=== PATIENT | male | born 1955 | race Caucasian/White ===

== ENCOUNTER 2022-01-01 07:54 | Outpatient (CLI) | payer OTHER, SELFPAY ==
--- NOTE | 2022-01-01 08:00 | CRLHL7_ITS ---
For Patients: As a result of the Century Cures Act, medical imaging exams and procedure reports are released immediately into your electronic medical record. You may view this report before your referring provider. If you have questions, please contact your health care provider. Indication: SMALL CELL LYMPHOMA Technique: Post contrast CT chest. 89 cc Isovue 370 intravenous contrast. Please note that all CT scans at this facility use dose modulation, iterative reconstruction, and/or weight-based dosing when appropriate to reduce radiation dose to as low as reasonably achievable. Comparison: None Findings: A subtle nodule is present within the left upper lobe measuring 5 millimeters, . Mild dependent atelectasis/scarring. No pleural effusion or infiltrate. Faint ground-glass density within the right upper lobe posteriorly, . No pneumothorax or pulmonary edema. A nodular density is located posterior to the left thyroid lobe measuring 2 cm, 07/24. Thoracic inlet adenopathy noted. Bilateral axillary adenopathy. Moderate residual thymic tissue. Subcutaneous nodule left anterior chest wall measuring 1.3 cm. Mediastinal and bilateral hilar adenopathy with lymph nodes measuring up to 3.8 cm. Upper abdominal adenopathy. Lobular mass in the left upper quadrant measuring 5.4 cm may represent splenosis. Visualized adrenal glands normal. Lymph nodes in the upper abdomen measure up to 3 cm. No fracture. Impression: Extensive adenopathy involving the thoracic inlet, bilateral axilla, bilateral jay jay, mediastinum and upper abdomen. 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 Subtle ground-glass nodules left upper lobe and right upper lobe. Please note that all CT scans at this facility use dose modulation, iterative reconstruction, and/or weight-based dosing when appropriate to reduce radiation dose to as low as reasonably achievable. Dictated by Jacob Billingsley MD @ 01/01/2022 9:05:54 AM (Electronically Signed)
--- NOTE | 2022-01-01 08:00 | CRLHL7_ITS ---
For Patients: As a result of the Century Cures Act, medical imaging exams and procedure reports are released immediately into your electronic medical record. You may view this report before your referring provider. If you have questions, please contact your health care provider. INDICATION: SMALL CELL LYMPHOMA COMPARISON: none TECHNIQUE: A CT volumetric acquisition was performed of the neck during intravenous infusion of 89 cc Isovue 370 nonionic intravenous contrast. Please note that all CT scans at this facility use dose modulation, iterative reconstruction, and/or weight-based dosing when appropriate to reduce radiation dose to as low as reasonably achievable. FINDINGS: Bilateral cervical adenopathy with lymph nodes measuring up to 2.3 cm. The lymph nodes are slightly more prominent on the left, particularly within the lower left neck. Thoracic inlet adenopathy noted as well. There is a 1.9 cm nodule arising from the left thyroid lobe posteriorly. Normal larynx and pharynx. Normal vallecular and piriform sinuses. Degenerative disc disease. Normal salivary glands. No sinus disease. IMPRESSION: Bilateral cervical adenopathy. 1.9 cm left thyroid lobe nodule. Thyroid ultrasound recommended. Please note that all CT scans at this facility use dose modulation, iterative reconstruction, and/or weight-based dosing when appropriate to reduce radiation dose to as low as reasonably achievable. Dictated by Jacob Billingsley MD @ 01/01/2022 9:31:25 AM (Electronically Signed)
== END 2022-01-01 07:55 | disposition home or self-care (01) ==
LOC: CT 07:54
PROVIDERS: PCP Family Medicine; Visit Provider Internal Medicine Hematology & Oncology
DX: C83.00 Small cell B-cell lymphoma, unspecified site (principal); E04.1 Nontoxic single thyroid nodule; R16.1 Splenomegaly, not elsewhere classified; R91.8 Other nonspecific abnormal finding of lung field
CPT/HCPCS: 70491; 71260; Q9967

== ENCOUNTER 2022-05-22 09:30 | Outpatient (RCR) | payer MEDICARE, OTHER, BC, SELFPAY ==
[2021-12-25 12:26] LABS: Basophils Percent Auto 0.1 % (0.0-3.0); Eosinophils Percent Auto 0.7 % (0.0-7.0); Hematocrit 43.1 % (37.0-53.0); Hemoglobin* 13.9 gm/dL (13.5-17.5); Immature Granulocytes Abs Auto 0.07 K/uL (0.00-0.30); Lymphocytes Percent Auto 88.7 % (20-44); Mean Corpuscular HGB Conc 32 gm/dL (32-36); Mean Corpuscular Hemoglobin 30 pg (26-34); Mean Corpuscular Volume 92 fL (80-100); Monocytes Percent Auto 3.3 % (0.0-11.0); Neutrophils Percent Auto 7.1 % (42.0-72.0); Platelet Count* 252 K/uL (140-440); RDW Coefficient of Variation % 13.7 % (11.5-15.5); Red Blood Count 4.69 m/uL (4.30-5.90)
[2021-12-25 12:34] LABS: Chloride* 106 mmol/L (96-114); Sodium* 141 mmol/L (135-149)
[2021-12-25 12:37] LABS: Blood Urea Nitrogen* 17 mg/dL (7-30); Carbon Dioxide* 25 mmol/L (20-32); Creatinine* 1.1 mg/dL (0.5-1.5); Estimated Glomerular Filt Rate 75 ml/min; Glucose* 218 mg/dL (60-115)
[2021-12-25 13:04] LABS: Slide Review Reflex Yes; White Blood Count* 76.22 K/uL (4.50-11.00)
[2021-12-25 13:05] LABS: Slide Review Acceptable Review (Acceptable)
[2021-12-26 14:27] LABS: Beta-2-Microglob Serum/Plasma 4.3 mg/L (<=3.0)
[2021-12-26 15:16] LABS: Immunoglobulin A 169 mg/dL (68-408); Immunoglobulin G 1000 mg/dL (768-1632); Immunoglobulin M 15 mg/dL (35-263)
--- NOTE | 2022-02-11 14:42 | ONC.NURNOTE ---
Pt called wondering if he can get an interpretation of his lab results from Dr. Friend. Left message with pt stating Dr. Friend will review results and reach out to pt by phone when she returns to [facility].
[2022-03-26 10:55] LABS: Basophils Percent Auto 0.1 % (0.0-3.0); Eosinophils Percent Auto 0.4 % (0.0-7.0); Hematocrit 35.7 % (37.0-53.0); Hemoglobin* 11.3 gm/dL (13.5-17.5); Immature Granulocytes Pct Auto 0.1 %; Lymphocytes Percent Auto 89.7 % (20-44); Mean Corpuscular HGB Conc 32 gm/dL (32-36); Mean Corpuscular Hemoglobin 30 pg (26-34); Mean Corpuscular Volume 95 fL (80-100); Monocytes Percent Auto 2.2 % (0.0-11.0); Neutrophils Percent Auto 7.5 % (42.0-72.0); Platelet Count* 410 K/uL (140-440); RDW Coefficient of Variation % 13.2 % (11.5-15.5); Red Blood Count 3.76 m/uL (4.30-5.90)
[2022-03-26 11:00] LABS: Slide Review Reflex Yes; White Blood Count* 128.98 K/uL (4.50-11.00)
[2022-03-26 11:37] LABS: Slide Review Acceptable Review (Acceptable)
[2022-03-31 11:30] VITALS: BP 112/73; PULSE 100; RESP 14; TEMP 36.1; O2SAT 98
--- NOTE | 2022-04-24 15:58 | ONC.NURNOTE ---
Pt cancelled lab appt on 04/23/22 due to spouse testing positive and pt requesting to stay home. Left message with pt to call [facility] to reschedule lab appt.
[2022-05-22 09:28] LABS: Basophils Percent Auto 0.1 % (0.0-3.0); Eosinophils Percent Auto 0.5 % (0.0-7.0); Hematocrit 34.6 % (37.0-53.0); Hemoglobin* 10.6 gm/dL (13.5-17.5); Lymphocytes Percent Auto 93.7 % (20-44); Mean Corpuscular HGB Conc 31 gm/dL (32-36); Mean Corpuscular Hemoglobin 30 pg (26-34); Mean Corpuscular Volume 97 fL (80-100); Monocytes Percent Auto 2.3 % (0.0-11.0); Neutrophils Percent Auto 3.4 % (42.0-72.0); Platelet Count* 229 K/uL (140-440); RDW Coefficient of Variation % 14.2 % (11.5-15.5); Red Blood Count 3.57 m/uL (4.30-5.90)
[2022-05-22 09:55] LABS: Slide Review Reflex No; White Blood Count* 116.57 K/uL (4.50-11.00)
== END 2022-06-23 23:59 | disposition home or self-care (01) ==
LOC: CCIC 09:30
PROVIDERS: PCP Family Medicine; Referring Provider Family Medicine; Visit Provider Internal Medicine Hematology & Oncology
DX: C83.00 Small cell B-cell lymphoma, unspecified site (principal)
CPT/HCPCS: 36415; 80048; 82232; 82784; 85025; 96372; 99202; 99204; 99205; 99212; 99213; 99214

== ENCOUNTER 2022-06-24 11:58 | Outpatient (CLI) | payer MEDICARE, BC, SELFPAY ==
--- NOTE | 2022-06-24 13:00 | CRLHL7_ITS ---
For Patients: As a result of the 21st Century Cures Act, medical imaging exams and procedure reports are released immediately into your electronic medical record. You may view this report before your referring provider. If you have questions, please contact your health care provider. INDICATION: Chronic lymphocytic leukemia. COMPARISON: None TECHNIQUE: CT examination of the chest, abdomen and pelvis was performed without intravenous contrast. Thin section axial images were obtained from the thoracic inlet through the pubic symphysis. Oral contrast was not administered. Sagittal and coronal reformatted imaging was performed Please note that all CT scans at this facility use dose modulation, iterative reconstruction, and/or weight-based dosing when appropriate to reduce radiation dose to as low as reasonably achievable. FINDINGS: CHEST: The heart size normal. There is significant mediastinal lymphadenopathy diffusely. This is present on the prior study and is similar to the prior exam. There is also bilateral axillary lymphadenopathy which is similar to the prior study. A nodule is noted in the left breast which is unchanged probably an enlarged lymph node. No pericardial effusion. The lungs show no focal consolidation, infiltrate or mass. No significant nodule. Trace basilar atelectasis. No pleural effusion or pneumothorax. ABDOMEN AND PELVIS: LIVER/BILIARY SYSTEM:The liver is normal in size and configuration given the lack of intravenous contrast. There is no visible focal mass and there is no intra- or extra hepatic biliary ductal dilatation.The gall bladder appears normal. ADRENALS: Normal non-contrast appearance KIDNEYS, URETERS and BLADDER:There is an exophytic left upper pole renal lesion. This measures 34 Hounsfield units and measures about 5.2 centimeters. This is non cystic but is similar to January 01, 2022. This is probably a complex cyst but follow-up evaluation is recommended such as ultrasound. There is bilateral hydronephrosis and hydroureter, left much greater than right. There is marked cortical thinning on the left but no significant cortical thinning on the right. There is a stone in the distal right ureter measuring 5.6 millimeters. This about 2 centimeters from the UVJ. There is a 12 millimeter stone in the distal left ureter at the UVJ. A small stone is noted in the bladder. The bladder is distended and there is wall thickening and trabeculation in keeping with chronic bladder outlet obstruction. The prostate is enlarged The hydronephrosis and hydroureter is probably due to a combination of stone disease and bladder outlet obstruction. SPLEEN:The spleen appears to be absent. There are multiple nodules in the left upper quadrant which are probably regenerative splenules and it may be unusually large due to CLL. This appearance is unchanged. PANCREAS: Normal non-contrast appearance. RETROPERITONEUM and MESENTERY: There is lymphadenopathy identified. This is mesenteric, retroperitoneal and pelvic and is overall moderate. This is likely associated with the patient`s CLL. GASTROINTESTINAL SYSTEM: There is no evidence of diverticulitis, colitis, mechanical obstruction, or appendicitis. The small bowel as visualized appears normal.Fecal retention and diverticulosis PELVIS: Enlarged prostate. Abnormal bladder. And lymphadenopathy. These factors were discussed above OSSEOUS STRUCTURES and ABDOMINAL WALL: No destructive process of bone.No visible herniation OTHER: No free fluid or free air. IMPRESSION: 1. CHEST: Mediastinal and bilateral axillary lymphadenopathy similar to the prior study. Left chest wall nodule probably an enlarged lymph node likewise unchanged. Lungs and pleural spaces show no significant finding CLL. This is within the abdomen in the pelvis. The spleen appears to be absent. There are multiple prominent regenerative splenules. There are large size may be related to the patient`s underlying CLL. 3. KIDNEYS: Bilateral obstructive uropathy with severe cortical thinning on the left. This appears to be due to a combination of stone disease and chronic bladder outlet obstruction on the basis of an enlarged prostate. Please review the description above regarding the urinary system 4. OSSEOUS STRUCTURES: No destructive process of bone Please note that all CT scans at this facility use dose modulation, iterative reconstruction, and/or weight-based dosing when appropriate to reduce radiation dose to as low as reasonably achievable. Dictated by Wallace Patrick MD @ 06/25/2022 8:43:55 AM (Electronically Signed)
== END 2022-06-24 11:59 | disposition home or self-care (01) ==
LOC: CT 12:00
PROVIDERS: PCP Family Medicine; Visit Provider Physician Assistant
DX: C91.10 Chronic lymphocytic leukemia of B-cell type not having achieved remission (principal); R59.0 Localized enlarged lymph nodes; N40.0 Benign prostatic hyperplasia without lower urinary tract symptoms
CPT/HCPCS: 71250; 74176

== ENCOUNTER 2022-09-22 13:45 | Outpatient (RCR) | payer MEDICARE, BC, SELFPAY ==
[2022-06-24 12:37] LABS: Basophils Percent Auto 0.1 % (0.0-3.0); Eosinophils Percent Auto 0.6 % (0.0-7.0); Hematocrit 34.6 % (37.0-53.0); Hemoglobin* 10.7 gm/dL (13.5-17.5); Immature Granulocytes Pct Auto 0.1 %; Lymphocytes Percent Auto 91.5 % (20-44); Mean Corpuscular HGB Conc 31 gm/dL (32-36); Mean Corpuscular Hemoglobin 31 pg (26-34); Mean Corpuscular Volume 99 fL (80-100); Monocytes Percent Auto 3.6 % (0.0-11.0); Neutrophils Percent Auto 4.1 % (42.0-72.0); Platelet Count* 216 K/uL (140-440); RDW Coefficient of Variation % 14.8 % (11.5-15.5); Red Blood Count 3.51 m/uL (4.30-5.90)
[2022-06-24 12:40] LABS: Estimated Glomerular Filt Rate 36 ml/min
[2022-06-24 13:21] LABS: White Blood Count* 103.38 K/uL (4.50-11.00)
[2022-06-24 13:22] LABS: Slide Review Acceptable Review (Acceptable); Slide Review Reflex Yes
[2022-09-22 13:49] LABS: Basophils Percent Auto 0.1 % (0.0-3.0); Eosinophils Percent Auto 0.5 % (0.0-7.0); Hematocrit 36.7 % (37.0-53.0); Hemoglobin* 11.3 gm/dL (13.5-17.5); Immature Granulocytes Pct Auto 0.1 %; Lymphocytes Percent Auto 94.3 % (20-44); Mean Corpuscular HGB Conc 31 gm/dL (32-36); Mean Corpuscular Hemoglobin 30 pg (26-34); Mean Corpuscular Volume 96 fL (80-100); Monocytes Percent Auto 1.5 % (0.0-11.0); Neutrophils Percent Auto 3.5 % (42.0-72.0); Platelet Count* 307 K/uL (140-440); RDW Coefficient of Variation % 13.7 % (11.5-15.5); Red Blood Count 3.83 m/uL (4.30-5.90)
[2022-09-22 14:35] LABS: Slide Review Reflex Yes; White Blood Count* 150.34 K/uL (4.50-11.00)
[2022-09-22 14:36] LABS: Slide Review Acceptable Review (Acceptable)
[2022-09-22 17:22] LABS: Chloride* 105 mmol/L (96-114); Potassium* 4.3 mmol/L (3.6-5.1); Sodium* 141 mmol/L (135-149)
[2022-09-22 17:24] LABS: Bilirubin Total* 0.9 mg/dL (0.1-1.5); Creatinine* 1.6 mg/dL (0.5-1.5); Estimated Glomerular Filt Rate 48 ml/min
[2022-09-22 17:25] LABS: Alanine Aminotransferase* 25 U/L (4-50); Alkaline Phosphatase* 95 U/L (40-150); Aspartate Amino Transferase* 30 U/L (12-35); Blood Urea Nitrogen* 18 mg/dL (7-30); Calcium* 8.8 mg/dL (8.4-10.6); Carbon Dioxide* 28 mmol/L (20-32); Glucose* 209 mg/dL (60-115); Lactate Dehydrogenase* 148 U/L (120-246); Total Protein* 7.1 g/dL (6.0-8.3)
== END 2022-12-21 23:59 | disposition home or self-care (01) ==
LOC: CCIC 13:45
PROVIDERS: Internal Medicine Hematology & Oncology; Physician Assistant; PCP Family Medicine; Referring Provider Family Medicine; Visit Provider Internal Medicine Hematology & Oncology
DX: C91.10 Chronic lymphocytic leukemia of B-cell type not having achieved remission (principal); D64.9 Anemia, unspecified
CPT/HCPCS: 36415; 80053; 82565; 83615; 85025; 99212; 99214

== ENCOUNTER 2023-02-17 10:34 | Outpatient (CLI) | payer MEDICARE, BC, SELFPAY ==
--- NOTE | 2023-02-17 11:00 | CRLHL7_ITS ---
For Patients: As a result of the 21st Century Cures Act, medical imaging exams and procedure reports are released immediately into your electronic medical record. You may view this report before your referring provider. If you have questions, please contact your health care provider. Indication: LYMPHOPLASMACYSTIC LYMPHOMA- FOLLOW UP Technique: Noncontrast CT chest, abdomen and pelvis. Please note that all CT scans at this facility use dose modulation, iterative reconstruction, and/or weight-based dosing when appropriate to reduce radiation dose to as low as reasonably achievable. Comparison: 06/24/2022 Findings: In the chest, there is a similar appearance of the thyroid gland with several small nodules. Similar morphology, size and number innumerable enlarged lymph nodes throughout the thorax, including the thoracic inlet, upper mediastinum, bilateral axilla, middle mediastinum and in the epicardial fat. Similar lymph node within the left anterior chest wall. No pleural or pericardial effusion. The jay jay appear similar on this noncontrast enhanced exam. Similar lymph nodes at the GE junction. Lungs are clear. No fracture. In the abdomen, hepatomegaly noted measuring 22.2 cm. Previously, the liver measured 20.5 cm. Multiple splenules in the left upper quadrant again noted. Stones within the left renal collecting system are similar. Decreased left hydroureteronephrosis. Right renal cysts. Resolution of previously noted right hydroureteronephrosis. Gallbladder normal. Pancreas is similar. No adrenal lesion. Extensive adenopathy in the retroperitoneum and mesenteric fat is similar. Mild atherosclerotic changes. No aneurysm. No free fluid. No bowel obstruction. No hiatal hernia. Stable peripherally calcified structure in the left upper quadrant. In the pelvis, diffuse bladder wall thickening with trabeculation again noted with decreased distention of the bladder since the prior exam. No mechanical bowel obstruction. Sigmoid diverticulosis. No diverticulitis. No ascites or abscess. Adenopathy in the pelvic sidewalls and inguinal regions remains similar. No fracture. Degenerative changes at L5-S1. Postop changes regarding the prostate. Impression: Similar bulky adenopathy in the chest, abdomen and pelvis. Hepatomegaly with increased hepatic size since the prior study. Postop changes to the inferior bladder/prostate with decreased distention of the bladder. Persistent bladder wall thickening with trabeculation. Decreased hydroureteronephrosis bilaterally with mild residual distention of the left renal collecting system. Persistent left renal stones in the inferior left renal collecting system. Colonic diverticulosis without diverticulitis or bowel obstruction. Please note that all CT scans at this facility use dose modulation, iterative reconstruction, and/or weight-based dosing when appropriate to reduce radiation dose to as low as reasonably achievable. Dictated by Jacob Billingsley MD @ 02/19/2023 6:48:21 AM (Electronically Signed)
== END 2023-02-17 10:35 | disposition home or self-care (01) ==
PROVIDERS: PCP Family Medicine; Visit Provider Internal Medicine Hematology & Oncology
DX: C83.00 Small cell B-cell lymphoma, unspecified site (principal); R16.0 Hepatomegaly, not elsewhere classified
CPT/HCPCS: 71250; 74176

== ENCOUNTER 2023-09-06 13:00 | Outpatient (RCR) | payer MEDICARE, BC, SELFPAY ==
--- NOTE | 2023-03-01 15:26 | ONC.NURNOTE ---
Recieved a critical lab value from [facility]. WBC: 190.2. This lab was reported to Dr. Viera. Per Dr. Viera, this patient transferred care to [place] for which she see's this patient virtually. Dr. Viera will follow up with patient regarding this critical lab value.
--- NOTE | 2023-03-09 13:05 | ONC.NURNOTE ---
New start Calquence RX sent to [id number] fax [phone] Herminio was contacted and will be coming in on Wednesday for teaching EKG orders sent to Dr medrano at [facility]- Herminio will try to get done before leaving for [place] for 3 weeks PA/copay info pending we do not have Herminio's update insurance and he will email to this promotion writer
--- NOTE | 2023-03-16 13:29 | ONC.NURNOTE ---
Patient and here for teaching on new start Calquence reviewed handout, possible side effects, after hours management, reviewed content of the new patient education binder discussed fever management, self care at home, safe handling and disposal discussed process for obtaining the medication- possible copays and options for copay assist and free drug options thru the door to door lead generation patient will be starting Calquence when he returns from 3 week trip to [place] and has a Dr Viera appt after Thanksgiving questions addressed consents/CHIQUI reviewed and signed
--- NOTE | 2023-03-16 13:34 | ONC.NURNOTE ---
Addendum entered by Vandana Baez RN 03/17/23 13:47: PA approved 12/15/22-03/15/24 Case # [id number] Copay per [facility] is $3210.23/month Herminio contacted with instructions to contact [id number] to request enrollment in copay program he will need his 1040 gross income and ss # patient states understanding Original Note: New RX sent to [id number] with supportive information PA completed and approved via Covermymeds patient thinks he will have a copay around $3000/month
--- NOTE | 2023-03-24 09:26 | ONC.NURNOTE ---
Copay enrollment for Calquence Drug Name:[employer] / National Sales Consultant: LLS Effective Date (mmdd/yyyy): 12/18/2022 Expiration Date (yyyy):03/17/2024 Award Amount: $10,000 Group#: [id number] Financial Assistance obtained by [id number]? (Y/N): YES
--- NOTE | 2023-03-30 09:55 | ONC.NURNOTE ---
Patient expressed interest in clinical trials options- this was mentioned to Dr Viera- patient has an appt next week with Dr Viera
[2023-04-12 13:39] LABS: Basophils Percent Auto 0.1 % (0.0-3.0); Eosinophils Percent Auto 0.2 % (0.0-7.0); Hematocrit 42.9 % (37.0-53.0); Hemoglobin* 12.8 gm/dL (13.5-17.5); Immature Granulocytes Pct Auto 0.1 %; Lymphocytes Percent Auto 94.3 % (20-44); Mean Corpuscular HGB Conc 30 gm/dL (32-36); Mean Corpuscular Hemoglobin 30 pg (26-34); Mean Corpuscular Volume 99 fL (80-100); Neutrophils Percent Auto 3.3 % (42.0-72.0); Platelet Count* 228 K/uL (140-440); RDW Coefficient of Variation % 14.4 % (11.5-15.5); Red Blood Count 4.32 m/uL (4.30-5.90)
[2023-04-12 13:49] LABS: Albumin* 4.6 g/dL (3.3-5.0); Chloride* 103 mmol/L (96-114)
[2023-04-12 13:50] LABS: Potassium* 4.4 mmol/L (3.6-5.1); Sodium* 140 mmol/L (135-149)
[2023-04-12 13:52] LABS: Alanine Aminotransferase* 42 U/L (4-50); Alkaline Phosphatase* 75 U/L (40-150); Anion Gap 9 mEq/L (7-15); Aspartate Amino Transferase* 32 U/L (12-35); Bilirubin Total* 2.3 mg/dL (0.1-1.5); Blood Urea Nitrogen* 29 mg/dL (7-30); Carbon Dioxide* 28 mmol/L (20-32); Creatinine* 1.7 mg/dL (0.5-1.5); Estimated Glomerular Filt Rate 44 ml/min; Glucose* 261 mg/dL (60-115); Lactate Dehydrogenase* 155 U/L (120-246); Total Protein* 7.4 g/dL (6.0-8.3)
[2023-04-12 13:53] LABS: Calcium* 9.4 mg/dL (8.4-10.6)
[2023-04-12 14:05] LABS: Slide Review Reflex Yes; White Blood Count* 212.93 K/uL (4.50-11.00)
[2023-04-12 14:15] LABS: Slide Review Acceptable Review (Acceptable)
[2023-04-12 15:09] LABS: Uric Acid* 6.7 mg/dL (2.2-8.4)
--- NOTE | 2023-04-12 15:28 | ONC.NURNOTE ---
Dose adjustment- verbal order to [facility] start Calquence at 100 mg/day instead of 100 mg BID disp #30 with 1 refill as was written
--- NOTE | 2023-04-13 12:27 | ONC.NURNOTE ---
Patient called office to let us know that he received his calquence and that he plans to start the medication tomorrow at 0800.
--- NOTE | 2023-04-16 14:57 | ONC.NURNOTE ---
Patient called in to set up follow up appts for 2 week lab and 4wk lab and MD Reports no side effects of calquence denies questions about administration will follow up again next week consumer loan underwriter later called back and left message to confirm that he started his allopurinol- message left on VM
--- NOTE | 2023-04-20 15:33 | ONC.NURNOTE ---
medication tolerance follow up Herminio reports no rash, no GI symptoms, no arthralgias or myalgias has noted fatigue discussed importance of staying very well hydrated and confirmed that he is taking the allopurinol discussed calling with any changes or concerns in the next week- appt for lab planned 04/29/23
[2023-04-29 11:09] LABS: Eosinophils Percent Auto 0.1 % (0.0-7.0); Hematocrit 44.1 % (37.0-53.0); Hemoglobin* 11.5 gm/dL (13.5-17.5); Immature Granulocytes Pct Auto 0.1 %; Lymphocytes Percent Auto 97.4 % (20-44); Mean Corpuscular HGB Conc 26 gm/dL (32-36); Mean Corpuscular Hemoglobin 27 pg (26-34); Mean Corpuscular Volume 105 fL (80-100); Monocytes Percent Auto 0.6 % (0.0-11.0); Neutrophils Percent Auto 1.8 % (42.0-72.0); Platelet Count* 257 K/uL (140-440); Red Blood Count 4.22 m/uL (4.30-5.90)
[2023-04-29 11:23] LABS: Albumin* 4.5 g/dL (3.3-5.0); Chloride* 103 mmol/L (96-114); Potassium* 4.9 mmol/L (3.6-5.1); Sodium* 138 mmol/L (135-149)
[2023-04-29 11:25] LABS: Creatinine* 1.6 mg/dL (0.5-1.5); Estimated Glomerular Filt Rate 47 ml/min; Total Protein* 7.7 g/dL (6.0-8.3)
[2023-04-29 11:26] LABS: Alanine Aminotransferase* 35 U/L (4-50); Alkaline Phosphatase* 100 U/L (40-150); Aspartate Amino Transferase* 32 U/L (12-35); Blood Urea Nitrogen* 35 mg/dL (7-30); Calcium* 9.5 mg/dL (8.4-10.6); Glucose* 243 mg/dL (60-115)
[2023-04-29 11:30] LABS: Slide Review Acceptable Review (Acceptable); Slide Review Reflex Yes
[2023-04-29 11:42] LABS: Anion Gap 9 mEq/L (7-15); Carbon Dioxide* 26 mmol/L (20-32)
--- NOTE | 2023-04-30 10:59 | ONC.NURNOTE ---
Leukemia and Lymphoma enrollment through 03/17/24 ID: [id number] [facility] [id number] [facility] [id number] [facility] [id number]
[2023-05-03 08:15] LABS: Eosinophils Percent Auto 0.1 % (0.0-7.0); Hematocrit 42.9 % (37.0-53.0); Hemoglobin* 10.7 gm/dL (13.5-17.5); Immature Granulocytes Pct Auto 0.1 %; Lymphocytes Percent Auto 97.4 % (20-44); Mean Corpuscular HGB Conc 25 gm/dL (32-36); Mean Corpuscular Hemoglobin 26 pg (26-34); Mean Corpuscular Volume 105 fL (80-100); Monocytes Percent Auto 1.3 % (0.0-11.0); Neutrophils Percent Auto 1.1 % (42.0-72.0); Platelet Count* 240 K/uL (140-440); RDW Coefficient of Variation % 19.1 % (11.5-15.5); Red Blood Count 4.07 m/uL (4.30-5.90)
[2023-05-03 08:31] LABS: Albumin* 4.4 g/dL (3.3-5.0); Chloride* 103 mmol/L (96-114)
[2023-05-03 08:32] LABS: Potassium* 4.6 mmol/L (3.6-5.1); Sodium* 138 mmol/L (135-149)
[2023-05-03 08:33] LABS: Slide Review Reflex Yes; White Blood Count* 367.44 K/uL (4.50-11.00)
[2023-05-03 08:34] LABS: Alkaline Phosphatase* 90 U/L (40-150); Anion Gap 8 mEq/L (7-15); Aspartate Amino Transferase* 37 U/L (12-35); Blood Urea Nitrogen* 28 mg/dL (7-30); Carbon Dioxide* 27 mmol/L (20-32); Creatinine* 1.5 mg/dL (0.5-1.5); Estimated Glomerular Filt Rate 51 ml/min; Lactate Dehydrogenase* 146 U/L (120-246); Slide Review Acceptable Review (Acceptable); Total Protein* 7.4 g/dL (6.0-8.3)
[2023-05-03 08:35] LABS: Alanine Aminotransferase* 41 U/L (4-50); Calcium* 9.2 mg/dL (8.4-10.6); Glucose* 218 mg/dL (60-115)
[2023-05-13 10:42] LABS: Eosinophils Percent Auto 0.1 % (0.0-7.0); Immature Granulocytes Pct Auto 0.1 %; Lymphocytes Percent Auto 97.8 % (20-44); Mean Corpuscular HGB Conc 25 gm/dL (32-36); Mean Corpuscular Hemoglobin 26 pg (26-34); Mean Corpuscular Volume 106 fL (80-100); Monocytes Percent Auto 0.6 % (0.0-11.0); Neutrophils Percent Auto 1.4 % (42.0-72.0); Platelet Count* 199 K/uL (140-440); Red Blood Count 4.17 m/uL (4.30-5.90)
[2023-05-13 11:17] LABS: Slide Review Reflex Yes
[2023-05-13 11:18] LABS: Slide Review Acceptable Review (Acceptable)
[2023-05-13 11:20] LABS: Albumin* 4.4 g/dL (3.3-5.0); Chloride* 101 mmol/L (96-114); Potassium* 4.4 mmol/L (3.6-5.1); Sodium* 138 mmol/L (135-149)
[2023-05-13 11:22] LABS: Bilirubin Total* 1.2 mg/dL (0.1-1.5); Creatinine* 1.6 mg/dL (0.5-1.5); Estimated Glomerular Filt Rate 47 ml/min
[2023-05-13 11:23] LABS: Alanine Aminotransferase* 48 U/L (4-50); Alkaline Phosphatase* 92 U/L (40-150); Anion Gap 12 mEq/L (7-15); Aspartate Amino Transferase* 38 U/L (12-35); Blood Urea Nitrogen* 28 mg/dL (7-30); Carbon Dioxide* 25 mmol/L (20-32); Glucose* 257 mg/dL (60-115); Lactate Dehydrogenase* 150 U/L (120-246); Total Protein* 7.4 g/dL (6.0-8.3)
--- NOTE | 2023-05-13 13:13 | ONC.NURNOTE ---
WBC called to Herminio- results consistent with the upward trend since starting Calquence- has an appt with Dr Viera next week continues on Calquence QOD until sees Dr Viera
[2023-05-25 08:40] LABS: Eosinophils Percent Auto 0.1 % (0.0-7.0); Hematocrit 42.7 % (37.0-53.0); Hemoglobin* 10.8 gm/dL (13.5-17.5); Immature Granulocytes Pct Auto 0.1 %; Mean Corpuscular HGB Conc 25 gm/dL (32-36); Mean Corpuscular Hemoglobin 27 pg (26-34); Mean Corpuscular Volume 106 fL (80-100); Monocytes Percent Auto 0.6 % (0.0-11.0); Neutrophils Percent Auto 1.2 % (42.0-72.0); Platelet Count* 229 K/uL (140-440); Red Blood Count 4.03 m/uL (4.30-5.90)
[2023-05-25 08:47] LABS: Slide Review Reflex Yes
[2023-05-25 08:53] LABS: Albumin* 4.1 g/dL (3.3-5.0); Chloride* 107 mmol/L (96-114); Potassium* 4.4 mmol/L (3.6-5.1); Sodium* 140 mmol/L (135-149)
[2023-05-25 08:55] LABS: Creatinine* 1.5 mg/dL (0.5-1.5)
[2023-05-25 08:56] LABS: Alanine Aminotransferase* 43 U/L (4-50); Alkaline Phosphatase* 88 U/L (40-150); Anion Gap 8 mEq/L (7-15); Aspartate Amino Transferase* 34 U/L (12-35); Bilirubin Total* 1.1 mg/dL (0.1-1.5); Blood Urea Nitrogen* 29 mg/dL (7-30); Calcium* 9.1 mg/dL (8.4-10.6); Carbon Dioxide* 25 mmol/L (20-32); Estimated Glomerular Filt Rate 51 ml/min; Glucose* 248 mg/dL (60-115); Lactate Dehydrogenase* 133 U/L (120-246); Total Protein* 7.1 g/dL (6.0-8.3)
[2023-05-25 09:00] LABS: Slide Review Acceptable Review (Acceptable)
[2023-06-07 08:12] LABS: Eosinophils Percent Auto 0.1 % (0.0-7.0); Hematocrit 43.9 % (37.0-53.0); Hemoglobin* 10.6 gm/dL (13.5-17.5); Immature Granulocytes Pct Auto 0.1 %; Lymphocytes Percent Auto 97.8 % (20-44); Mean Corpuscular HGB Conc 24 gm/dL (32-36); Mean Corpuscular Hemoglobin 26 pg (26-34); Mean Corpuscular Volume 107 fL (80-100); Monocytes Percent Auto 0.4 % (0.0-11.0); Neutrophils Percent Auto 1.6 % (42.0-72.0); Platelet Count* 261 K/uL (140-440); Red Blood Count 4.11 m/uL (4.30-5.90)
[2023-06-07 08:16] LABS: Albumin* 4.2 g/dL (3.3-5.0); Chloride* 106 mmol/L (96-114); Sodium* 139 mmol/L (135-149)
[2023-06-07 08:17] LABS: Potassium* 4.9 mmol/L (3.6-5.1)
[2023-06-07 08:19] LABS: Alkaline Phosphatase* 98 U/L (40-150); Anion Gap 9 mEq/L (7-15); Aspartate Amino Transferase* 26 U/L (12-35); Blood Urea Nitrogen* 30 mg/dL (7-30); Carbon Dioxide* 24 mmol/L (20-32); Creatinine* 1.4 mg/dL (0.5-1.5); Estimated Glomerular Filt Rate 55 ml/min; Total Protein* 7.3 g/dL (6.0-8.3)
[2023-06-07 08:20] LABS: Alanine Aminotransferase* 34 U/L (4-50); Calcium* 9.2 mg/dL (8.4-10.6); Glucose* 244 mg/dL (60-115)
--- NOTE | 2023-06-07 08:41 | ONC.NURNOTE ---
Critical lab: Total Wbc 413.99. Lab work obtained prior to follow up appointment with Dr. Susan Viera for CLL tomorrow 06/08/23. Provider aware of wbc trend and has been adjusting calquence.
[2023-06-07 08:44] LABS: Slide Review Acceptable Review (Acceptable); Slide Review Reflex Yes
[2023-07-02 07:57] LABS: Eosinophils Percent Auto 0.2 % (0.0-7.0); Hematocrit 42.1 % (37.0-53.0); Hemoglobin* 10.8 gm/dL (13.5-17.5); Immature Granulocytes Pct Auto 0.1 %; Lymphocytes Percent Auto 96.9 % (20-44); Mean Corpuscular HGB Conc 26 gm/dL (32-36); Mean Corpuscular Hemoglobin 27 pg (26-34); Mean Corpuscular Volume 106 fL (80-100); Monocytes Percent Auto 1.4 % (0.0-11.0); Neutrophils Percent Auto 1.4 % (42.0-72.0); Platelet Count* 247 K/uL (140-440); Red Blood Count 3.97 m/uL (4.30-5.90)
[2023-07-02 08:19] LABS: Slide Review Reflex Yes; White Blood Count* 363.38 K/uL (4.50-11.00)
[2023-07-02 08:21] LABS: Slide Review Acceptable Review (Acceptable)
[2023-07-02 08:30] LABS: Chloride* 108 mmol/L (96-114)
[2023-07-02 08:31] LABS: Potassium* 4.4 mmol/L (3.6-5.1); Sodium* 140 mmol/L (135-149)
[2023-07-02 08:33] LABS: Alkaline Phosphatase* 94 U/L (40-150); Anion Gap 8 mEq/L (7-15); Aspartate Amino Transferase* 36 U/L (12-35); Bilirubin Total* 0.7 mg/dL (0.1-1.5); Blood Urea Nitrogen* 22 mg/dL (7-30); Carbon Dioxide* 24 mmol/L (20-32); Creatinine* 1.4 mg/dL (0.5-1.5); Estimated Glomerular Filt Rate 55 ml/min
[2023-07-02 08:34] LABS: Alanine Aminotransferase* 37 U/L (4-50); Calcium* 9.2 mg/dL (8.4-10.6); Glucose* 201 mg/dL (60-115); Lactate Dehydrogenase* 125 U/L (120-246)
--- NOTE | 2023-07-02 13:18 | ONC.NURNOTE ---
White count called to Herminio- decreased from last draw Appt on Wednesday with Dr Viera
[2023-07-30 07:59] LABS: Eosinophils Percent Auto 0.1 % (0.0-7.0); Hematocrit 43.8 % (37.0-53.0); Immature Granulocytes Pct Auto 0.1 %; Lymphocytes Percent Auto 97.2 % (20-44); Mean Corpuscular HGB Conc 27 gm/dL (32-36); Mean Corpuscular Hemoglobin 28 pg (26-34); Mean Corpuscular Volume 102 fL (80-100); Monocytes Percent Auto 1.1 % (0.0-11.0); Neutrophils Percent Auto 1.5 % (42.0-72.0); Platelet Count* 216 K/uL (140-440); Red Blood Count 4.31 m/uL (4.30-5.90)
[2023-07-30 08:29] LABS: Slide Review Reflex Yes; White Blood Count* 286.25 K/uL (4.50-11.00)
[2023-07-30 08:31] LABS: Slide Review Acceptable Review (Acceptable)
[2023-09-03 07:56] LABS: Eosinophils Percent Auto 0.2 % (0.0-7.0); Hematocrit 41.9 % (37.0-53.0); Hemoglobin* 12.3 gm/dL (13.5-17.5); Immature Granulocytes Pct Auto 0.1 %; Lymphocytes Percent Auto 97.2 % (20-44); Mean Corpuscular HGB Conc 29 gm/dL (32-36); Mean Corpuscular Hemoglobin 29 pg (26-34); Mean Corpuscular Volume 100 fL (80-100); Monocytes Percent Auto 0.3 % (0.0-11.0); Neutrophils Percent Auto 2.2 % (42.0-72.0); Platelet Count* 236 K/uL (140-440); RDW Coefficient of Variation % 13.9 % (11.5-15.5); Red Blood Count 4.21 m/uL (4.30-5.90)
[2023-09-03 08:10] LABS: Albumin* 4.1 g/dL (3.3-5.0)
[2023-09-03 08:11] LABS: Chloride* 109 mmol/L (96-114); Potassium* 4.5 mmol/L (3.6-5.1); Sodium* 139 mmol/L (135-149)
[2023-09-03 08:13] LABS: Alkaline Phosphatase* 79 U/L (40-150); Anion Gap 5 mEq/L (7-15); Aspartate Amino Transferase* 25 U/L (12-35); Bilirubin Total* 0.9 mg/dL (0.1-1.5); Carbon Dioxide* 25 mmol/L (20-32); Creatinine* 1.4 mg/dL (0.5-1.5); Estimated Glomerular Filt Rate 55 ml/min; Total Protein* 7.3 g/dL (6.0-8.3)
[2023-09-03 08:14] LABS: Alanine Aminotransferase* 25 U/L (4-50); Blood Urea Nitrogen* 29 mg/dL (7-30); Glucose* 225 mg/dL (60-115); Lactate Dehydrogenase* 142 U/L (120-246)
[2023-09-03 08:48] LABS: Slide Review Reflex Yes
[2023-09-03 08:49] LABS: Slide Review Acceptable Review (Acceptable)
== END 2023-09-11 23:59 | disposition home or self-care (01) ==
LOC: CCIC 13:00
PROVIDERS: Clinical Nurse Specialist; PCP Family Medicine; Referring Provider Family Medicine; Visit Provider Internal Medicine Hematology & Oncology
DX: C91.10 Chronic lymphocytic leukemia of B-cell type not having achieved remission (principal)
CPT/HCPCS: 36415; 80053; 83615; 84550; 85025; 99211; 99212; 99213; 99214; 99215; G0463

== ENCOUNTER 2024-03-27 13:30 | Outpatient (RCR) | payer MEDICARE, BC, SELFPAY ==
--- NOTE | 2023-11-10 13:01 | ONC.NURNOTE ---
Addendum entered by Vandana Baez RN 11/11/23 14:53: Herminio phoned in with an update The pharmacy does not have the paxlovid in stock yet- so Herminio has continued with his calquence Herminio reports feeling well today- symptoms that started on Wednesday have improved he had a fever and chilss Wednesday pm and sinus congestion on Wednesday- today only lingering symptom is fatigue Herminio reports that he returned to baseline status this past few weeks- and feels the calquence is working well to control his CLL- he would prefer to not take the paxlovid to avoid interruption of calquence this office will call Herminio back either or Wednesday with recommendations after speaking with Dr Friend this afternoon- Original Note: Anjana Fernandez PA-C phoned this office to report that patient is COVID positive she is concerned about potential interactions between calquence and Paxlovid property underwriter spoke with Kayla Doan APRN?YOUTH CAREER SPECIALIST following recommendation discussed with Anjana -hold meaghanqueimelda -Anjana to prescribe paxlovid -discuss with Dr Friend tomorrow about when is appropriate to restart calquence -will call patient on or Wednesday with further instructions -Kayla also advised that Anjana may want to check with [facility] or [facility] for further guidance
--- NOTE | 2023-11-16 14:49 | ONC.NURNOTE ---
LM on voice mail- follow up call re last weeks BAMBI dx
[2023-11-25 08:15] LABS: Eosinophils Percent Auto 0.3 % (0.0-7.0); Hematocrit 42.3 % (37.0-53.0); Hemoglobin* 13.1 gm/dL (13.5-17.5); Lymphocytes Percent Auto 95.6 % (20-44); Mean Corpuscular HGB Conc 31 gm/dL (32-36); Mean Corpuscular Hemoglobin 29 pg (26-34); Mean Corpuscular Volume 92 fL (80-100); Monocytes Percent Auto 0.7 % (0.0-11.0); Neutrophils Percent Auto 2.4 % (42.0-72.0); Platelet Count* 306 K/uL (140-440); RDW Coefficient of Variation % 12.9 % (11.5-15.5); Red Blood Count 4.59 m/uL (4.30-5.90)
[2023-11-25 08:21] LABS: Chloride* 106 mmol/L (96-114)
[2023-11-25 08:22] LABS: Albumin* 4.2 g/dL (3.3-5.0); Potassium* 4.6 mmol/L (3.6-5.1); Sodium* 138 mmol/L (135-149)
[2023-11-25 08:24] LABS: Creatinine* 1.4 mg/dL (0.5-1.5); Estimated Glomerular Filt Rate 55 ml/min
[2023-11-25 08:25] LABS: Alanine Aminotransferase* 13 U/L (4-50); Alkaline Phosphatase* 83 U/L (40-150); Anion Gap 9 mEq/L (7-15); Aspartate Amino Transferase* 18 U/L (12-35); Bilirubin Total* 0.7 mg/dL (0.1-1.5); Blood Urea Nitrogen* 28 mg/dL (7-30); Calcium* 9.3 mg/dL (8.4-10.6); Carbon Dioxide* 23 mmol/L (20-32); Glucose* 326 mg/dL (60-115); Lactate Dehydrogenase* 204 U/L (120-246); Total Protein* 7.2 g/dL (6.0-8.3)
[2023-11-25 08:38] LABS: Slide Review Reflex No; White Blood Count* 86.25 K/uL (4.50-11.00)
--- NOTE | 2023-11-25 10:57 | ONC.NURNOTE ---
Lab results called to Herminio- noted continued improvement in WBC and Hg Dr Viera appt on 11/29/23 Re: recent covid dx- patient did hold calquence X 1 week due to major interaction with paxlovid- restarted his calquence on 11/18/23
--- NOTE | 2024-03-06 09:18 | ONC.NURNOTE ---
PA expires 03/15- patient called in with information that new PA is due prior to his next refill- he received a letter from his insurance company development writer phoned [phone] and they will escalate refill process to set up PA renewal on covermymeds next fill is due mid March
[2024-03-23 09:45] LABS: Basophils Percent Auto 0.1 % (0.0-3.0); Eosinophils Percent Auto 0.5 % (0.0-7.0); Hematocrit 45.9 % (37.0-53.0); Hemoglobin* 14.8 gm/dL (13.5-17.5); Immature Granulocytes Pct Auto 0.3 %; Lymphocytes Percent Auto 74.7 % (20-44); Mean Corpuscular HGB Conc 32 gm/dL (32-36); Mean Corpuscular Hemoglobin 30 pg (26-34); Mean Corpuscular Volume 94 fL (80-100); Monocytes Percent Auto 2.1 % (0.0-11.0); Neutrophils Percent Auto 22.3 % (42.0-72.0); Platelet Count* 228 K/uL (140-440); RDW Coefficient of Variation % 13.5 % (11.5-15.5); Red Blood Count 4.91 m/uL (4.30-5.90)
[2024-03-23 10:04] LABS: Albumin* 4.5 g/dL (3.3-5.0)
[2024-03-23 10:05] LABS: Chloride* 102 mmol/L (96-114); Potassium* 4.6 mmol/L (3.6-5.1); Sodium* 137 mmol/L (135-149)
[2024-03-23 10:07] LABS: Alkaline Phosphatase* 74 U/L (40-150); Anion Gap 10 mEq/L (7-15); Aspartate Amino Transferase* 21 U/L (12-35); Bilirubin Total* 1.4 mg/dL (0.1-1.5); Carbon Dioxide* 25 mmol/L (20-32); Creatinine* 1.5 mg/dL (0.5-1.5); Estimated Glomerular Filt Rate 51 ml/min; Total Protein* 7.3 g/dL (6.0-8.3)
[2024-03-23 10:08] LABS: Alanine Aminotransferase* 22 U/L (4-50); Blood Urea Nitrogen* 27 mg/dL (7-30); Calcium* 9.6 mg/dL (8.4-10.6); Glucose* 239 mg/dL (60-115); Lactate Dehydrogenase* 149 U/L (120-246)
[2024-03-23 10:14] LABS: Slide Review Reflex Yes; White Blood Count* 53.97 K/uL (4.50-11.00)
[2024-03-23 10:15] LABS: Slide Review Acceptable Review (Acceptable)
--- NOTE | 2024-03-23 11:06 | ONC.NURNOTE ---
S copay assist re-enrollment document signed by Dr Viera and faxed to [facility] [phone]
--- NOTE | 2024-03-28 09:52 | W.ED.EKGINT ---
EKG Interpretation EKG Data Attestation: I personally reviewed and interpreted this ECG as follows: Date of EKG Tracin03/23/24 EKG interpretation date: 03/28/24 EKG interpretation time: 09:52 Prior EKG tracings: available for review Interpretation: EKG interpretation is done for above dates indication is chemotherapeutic monitoring. Mild sinus tachycardia at a ventricular rate of 104. QRS is 88 milliseconds, QT is 338, QTC is 444. Assessment: Abnormal EKG with sinus tachycardia. Otherwise normal
== END 2024-05-23 23:59 | disposition home or self-care (01) ==
LOC: CCIC 13:30
PROVIDERS: PCP Family Medicine; Referring Provider Family Medicine; Visit Provider Internal Medicine Hematology & Oncology
DX: C91.10 Chronic lymphocytic leukemia of B-cell type not having achieved remission (principal)
CPT/HCPCS: 36415; 80053; 83615; 85025; 93005; 93010; 99213; 99214; G0463

== ENCOUNTER 2024-09-25 13:30 | Outpatient (RCR) | payer MEDICARE, BC, SELFPAY ==
--- NOTE | 2024-06-12 09:25 | ONC.NURNOTE ---
No EKG needed at this time per Dr Viera
[2024-06-26 09:05] LABS: Hematocrit 45.2 % (37.0-53.0); Hemoglobin* 14.5 gm/dL (13.5-17.5); Immature Granulocytes Pct Auto 0.1 %; Mean Corpuscular HGB Conc 32 gm/dL (32-36); Mean Corpuscular Hemoglobin 30 pg (26-34); Mean Corpuscular Volume 93 fL (80-100); RDW Coefficient of Variation % 13.2 % (11.5-15.5); Red Blood Count 4.85 m/uL (4.30-5.90)
[2024-06-26 09:06] LABS: Albumin* 4.4 g/dL (3.3-5.0)
[2024-06-26 09:07] LABS: Chloride* 105 mmol/L (96-114); Potassium* 4.4 mmol/L (3.6-5.1); Sodium* 138 mmol/L (135-149)
[2024-06-26 09:09] LABS: Anion Gap 8 mEq/L (7-15); Aspartate Amino Transferase* 19 U/L (12-35); Bilirubin Total* 1.5 mg/dL (0.1-1.5); Carbon Dioxide* 25 mmol/L (20-32); Creatinine* 1.2 mg/dL (0.5-1.5); Estimated Glomerular Filt Rate 66 ml/min; Total Protein* 7.2 g/dL (6.0-8.3)
[2024-06-26 09:10] LABS: Alanine Aminotransferase* 21 U/L (4-50); Alkaline Phosphatase* 91 U/L (40-150); Blood Urea Nitrogen* 22 mg/dL (7-30); Calcium* 8.9 mg/dL (8.4-10.6); Glucose* 266 mg/dL (60-115)
[2024-06-26 09:24] LABS: Immature Granulocytes Abs Auto 0.00 K/uL (0.00-0.30); Lymphocytes Absolute Auto 21.60 K/uL (0.90-2.90); Slide Review Reflex Yes; White Blood Count* 27.67 K/uL (4.50-11.00)
[2024-06-26 14:54] LABS: Slide Review Acceptable Review (Acceptable)
[2024-09-25 12:53] LABS: Hematocrit 41.7 % (37.0-53.0); Hemoglobin* 13.6 gm/dL (13.5-17.5); Immature Granulocytes Pct Auto 0.3 %; Mean Corpuscular HGB Conc 33 gm/dL (32-36); Mean Corpuscular Hemoglobin 30 pg (26-34); Mean Corpuscular Volume 92 fL (80-100); RDW Coefficient of Variation % 13.5 % (11.5-15.5); Red Blood Count 4.53 m/uL (4.30-5.90); White Blood Count* 18.01 K/uL (4.50-11.00)
[2024-09-25 13:29] LABS: Albumin* 4.2 g/dL (3.3-5.0); Chloride* 104 mmol/L (96-114); Potassium* 4.1 mmol/L (3.6-5.1); Sodium* 139 mmol/L (135-149)
[2024-09-25 13:31] LABS: Blood Urea Nitrogen* 18 mg/dL (7-30); Creatinine* 1.4 mg/dL (0.5-1.5); Est. Creatinine Clearance* 52.87; Estimated Glomerular Filt Rate 55 ml/min
[2024-09-25 13:32] LABS: Alanine Aminotransferase* 22 U/L (4-50); Alkaline Phosphatase* 66 U/L (40-150); Anion Gap 12 mEq/L (7-15); Aspartate Amino Transferase* 24 U/L (12-35); Bilirubin Total* 0.8 mg/dL (0.1-1.5); Calcium* 9.4 mg/dL (8.4-10.6); Carbon Dioxide* 23 mmol/L (20-32); Glucose* 226 mg/dL (60-115); Total Protein* 7.1 g/dL (6.0-8.3)
[2024-09-25 14:23] LABS: Immature Granulocytes Abs Auto 0.10 K/uL (0.00-0.30); Lymphocytes Absolute Auto 14.80 K/uL (0.90-2.90); Slide Review Reflex No
--- NOTE | 2024-09-26 11:14 | W.ED.EKGINT ---
EKG Interpretation EKG Data Date of EKG Tracin09/25/24 Prior EKG tracings: available for review Interpretation: EKG interpretation is done for the above dates. Compared to old EKG from 03/23/2024, normal sinus rhythm, with a ventricular rate of 87, no acute ST wave changes, QRS 92 milliseconds, QT normal at 366 QTC 440. Comparison to old EKG, sinus tachycardia has resolved. Assessment: Normal EKG
--- NOTE | 2024-09-28 14:30 | ONC.NURNOTE ---
Addendum entered by Safia Hopson RN 09/29/24 10:14: spoke to pt today, he is aware of dose change. Appts made to follow up in December with Maximiliano and labs. Original Note: Left message for pt to call back and schedule [place] appts and needs instructions on Calquence dose change.
== END 2024-12-23 23:59 | disposition home or self-care (01) ==
LOC: CCIC 13:30
PROVIDERS: PCP Family Medicine; Referring Provider Family Medicine; Visit Provider Internal Medicine Hematology & Oncology
DX: C91.10 Chronic lymphocytic leukemia of B-cell type not having achieved remission (principal)
CPT/HCPCS: 36415; 80053; 83615; 85025; 93005; 93010; 99213; 99214; G0463

== ENCOUNTER 2025-05-08 14:57 | Outpatient (CLI) | payer OTHER, MEDICARE, BC, SELFPAY | END 2025-05-08 14:58 | disposition home or self-care (01) | LOC: AMB 05-13 04:51 | PROVIDERS: PCP Family Medicine; Visit Provider Student in an Organized Health Care Education/Training Program | DX: S29.9XXA Unspecified injury of thorax, initial encounter (principal); V43.53XA Car driver injured in collision with pick-up truck in traffic accident, initial encounter; Y92.413 State road as the place of occurrence of the external cause | CPT/HCPCS: A0425; A0427 ==

== ENCOUNTER 2025-05-08 15:21 | Emergency (ER) | payer OTHER, MEDICARE, BC, SELFPAY ==
[2025-05-08] VITALS (16 sets, daily range): BP systolic 116–145; BP diastolic 82–97; PULSE 89–95; RESP 8–22; TEMP 36.8; O2SAT 95–97; BMI 25.8
--- OUTSIDE RECORDS SUMMARY | 2025-05-08 15:23 | XMS_ITS ---
Author Organization [facility] Address [address] [place] [address] Care Team Providers Care Chief Medical Technologist Name Role Phone Elsewhere, Pcp Primary Care Provider Unavailabl e Active Problems * This document contains information received from the source organization and may not represent a complete record from that organization. 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 Barbra Friend of [facility] for this. He has blood draws and sees Dr. Friend every 3 months. Diabetes Mellitus Type 2 Without Pmvgkcnnoybb46/15/2017 Overview (06/26/2022): Victoza is not covered. Glipizide, Pioglitazone and Metformin are tier 1. Januvia and Jardiance are tier 2. Basaglar Kwikpen, Humulin Kwikpen, Lantus, Levemir and Novolog Flexpen are covered. Canigloflozin is not covered as of 06/02/2022. Loss Hearing Sensorineural Uzhjouewh70/31/2009Tremor Qjoxbfkis52/10/2009 Hypertensive Chronic Kidney Disease With Stage 1 Through Stage 4 Chronic Kidney Disease, Or Unspecified Chronic Kidney Yyxddlw7907/22/2007Rhinitis Allergic 07/22/2007 Current Treatment and Therapy Plans No current plan information found. Past Treatment and Therapy Plans No past plan information found. Lifetime Dose Tracking * ChemicalLifetime DoseAutomatic EntryManual SnitcAhyodqlve83.5 mGy28.5 mGy0 mGy Fluoro Time3.867 minutes3.867 minutes0 minutes
--- OUTSIDE RECORDS SUMMARY | 2025-05-08 15:23 | XMS_ITS | Clinical Summary ---
Author Organization [facility] Address [address] [place] [address] Care Team Providers Care Plastics Seasoner Operator Name Role Phone Alen Amos MD Primary Care Provider [phone] Allergies Active AllergyReactionsCriticalityNoted FrkgZubjccfsKqrzqzuOyvmt04/07/2008 YxgtcukTlscu16/07/3700OejuuypivoqLfoe11/07/2008 swelling Sulfa (Sulfonamide Antibiotics)Edema07/22/2007 Medications MedicationSigDispense QuantityRefillsLast FilledStart DateEnd DateStatus Calquence, acalabrutinib mal, 100 mg tablet Take 100 mg by mouth once daily.3Active lancets (Microlet Lancet) Indications:Type 2 diabetes mellitus without complication, without long-term current use of insulin (HC)Test daily 100 Each 604/5Active glipiZIDE 5 mg tablet Indications:Type 2 diabetes mellitus without complication, without long-term current use of insulin (HC)Take 1 Tablet (5 mg) by mouth two times daily before meals. 180 Tablet 3045Active blood sugar diagnostic (Ascensia CONTOUR) strip Indications:Type 2 diabetes mellitus without complication, without long-term current use of insulin (HC)Dispense test strips covered by the patient insurance. Test 3 times per week 100 Each 404/5Active atorvastatin 20 mg tablet Indications:Other hyperlipidemiaTake 1 Tablet (20 mg) by mouth at bedtime. 90 Tablet 3045Active lisinopriL 5 mg tablet Indications:Type 2 diabetes mellitus without complication, without long-term current use of insulin (HC),Essential hypertensionTake 1 Tablet (5 mg) by mouth once daily in the evening. 90 Tablet 304/5Active empagliflozin (JARDIANCE) 10 mg tablet Indications:Type 2 diabetes mellitus without complication, without long-term current use of insulin (HC)Take 1 Tablet (10 mg) by mouth once daily. 90 Tablet 3085Active propranoloL 40 mg tablet Indications:Essential hypertension,TremorTake 1.5 Tablets (60 mg) by mouth two times daily. 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 Barbra Friend of [facility] for this. He has blood draws and sees Dr. Friend every 3 months. Type 2 diabetes mellitus without complication, without long-term current use of vkmzbvy7601/29/2017 Overview (06/02/2022): Victoza is not covered. Glipizide, Pioglitazone and Metformin are tier 1. Januvia and Jardiance are tier 2. Basaglar Kwikpen, Humulin Kwikpen, Lantus, Levemir and Novolog Flexpen are covered. Canigloflozin is not covered as of 06/02/2022. Routine adult health rxxkymrrqpd04/03/2014 Overview (04/18/2014): Colonoscopy 04/2014 diverticulosis repeat in 10 years Sensorineural hearing loss, gbtlcxvim86/31/2009Tremor, wmumiksdy73/10/2009 Unspecified essential tnqkgnhazhta89/07/2008llergic rhinitis, cause unspecified 07/22/2007 Encounters DateTypeDepartmentCare MkmeEoqaqoyicvw41/22/2025Refill [facility] [address] [place] [address] Alen Amos MD Refill Request (Metformin)03/24/2025Refill [facility] [address] [facility] [place] [address] Alen Amos MD Refill Request (Metformin)03/23/2025Refill [facility] [address] [facility] [place] [address] Alen Amos MD Refill Request (Metformin)from Last 3 Months Immunizations ImmunizationAdministration DatesNext DueAMB Influenza, IIV3 (Age >=3 years)(Flu Clinic Only)03/03/2013,02/27/2012,04/09/2010MB Influenza, IIV4 PF (=>6 mos Flulaval,Fluzone Fluarix)(Flu Clinic Only)02/29/2016COVID-19 VACCINE SPIKEVAX (MODERNA 50MCG/0.5ML) 12YO+ PFS07/28/2023Influenza A (H1N1), Inactivated (Age 6- 35 Mos)06/08/2009Influenza, High-dose Rzdpujozlgc24/20/2024Influenza, High-dose Quadrivalent Cyxxydkkdfh11/23/2022Influenza, IIV3 (Age 6-35 mos)01/28/2011 Influenza, IIV3 (Age >=3 years)03/03/2013,02/27/2012,01/28/2011,04/09/2010, 04/14/2006,03/26/2003Influenza, FEU021/,02/03/2021,02/27/2018,01/29/2017, 02/29/2016,03/08/2015,02/12/2014Influenza,CCIIV4 PRESERV FREE01/18/2019 Pneumococcal Conj 20-valent (Prevnar 20)2RSV, Bivalent Vaccine Reconstituted (Abrysvo 120MCG/0.5mL)06/02/2023Td (Age >=7 Years)10/28/2005Tdap 06/02/2023,03/30/2012,10/28/2005Zoster (Shingrix-RZV, recombinant)03/02/2019, 12/27/2018Zoster (Zostavax-ZVL, live)05/03/2012 Family History Medical HistoryRelationNameCommentsHeart DiseaseFatherValvular heart disease/ of [place] at 49DiabetesMaternal GrandmotherCancer-breastMotherDiabetes Motherage 40sHypertensionMotherDiabetesPaternal GrandmotherRelationNameStatus CommentsFatherMaternal GrandmotherMotherPaternal Grandmother Social History Tobacco UseTypesPacks/DayYears UsedDateSmoking Tobacco: NeverSmokeless Tobacco: Never Tobacco Cessation:Counseling Given: Yes Alcohol UseStandard Drinks/WeekCommentsNot Currently0 (1 standard drink = 0.6 oz pure alcohol)PHQ-2AnswerDate RecordedPHQ-2 TOTAL TGICF984Social ConnectionsAnswerDate RecordedDo you often feel lonely or isolated from those around you?lcohol UseAnswerDate RecordedHow often do you have a drink containing alcohol?How many drinks containing alcohol do you have on a typical day when you are drinking?How often do you have five or more drinks on one occasion?Financial Resource StrainAnswer Date RecordedDifficulty of Paying Living Ccqipjhv129/16/2025Difficulty of Paying Living ExpensesNot on file08/30/2024Food InsecurityAnswerDate RecordedDo you worry your food will run out before you are able to buy more? 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 Gender IdentityNot on fileSexual OrientationNot on fileOccupationIndustryJob Start DateJob End DateretiredNot on fileNot on fileNot on file Last Filed Vital Signs Vital SignReadingTime TakenCommentsBlood Ktqknzld842/70001/03/2025 1:26 PM CDT Bgcvm195801/03/2025 1:26 PM ZFAEkhyiczcdav91.4 ??C (97.6 ??F)01/03/2025 1:26 PM CDTRespiratory Bnfq5885 2:00 PM CDTOxygen Mmrphlivqf35%01/03/2025 1:26 PM CDTInhaled Oxygen Concentration--Qzmwdq27.4 kg (175 lb 1.6 oz)01/03/2025 1:26 PM IOUSxqfws322.7 cm (5' 9.57)01/03/2025 1:26 PM CDTBody Mass Index25.44 01/03/2025 1:26 PM CDT Plan of Treatment Health MaintenanceDue DateLast DoneCommentsMedicare Wellness for age 65+ 2Colonoscopy through age 7512//07/2013, 04/18/2014COVID-19 vaccine series ( season), 07/28/2023, 02/10/2023, Additional history existsInfluenza Vaccine (#1), 04/13/2023, 02/03/2021, Additional history existsDepression screening for age 12+09/02/2025 09/02/2024, 08/30/2024, 07/28/2023, Additional history existsBMI (ht and wt on same day) for age 18+, 07/28/2023, 08/24/2022, Additional history existsLipids for age 45-750, 08/30/2024, 07/26/2023, Additional history existsTetanus jvvvloq85, 03/30/2012, 10/28/2005, Additional history existsHepatitis C screening for age 18-79 Meiqakljj80/29/2014Zoster (shingles) series for age 50+Hhropmxsj36/17/2019, 12/27/2018, 05/03/2012Pneumococcal series for age 50+Abwllvzhj79/11/2022RSV vaccine for adults or opapylomvLldzjgjse96/17/2024Hepatitis B series for 19+Aged OutNo longer eligible based on patient's age to complete this topic Procedures Procedure NamePriorityDate/TimeAssociated DiagnosisCommentsLIPID PANEL W REFLEX MEASURED JPBBzqgiio94/18/2025 7:56 AM CDT Type 2 diabetes mellitus without complication, without long-term current use of insulin (HC) ANTI FEDFehsbla57/29/2014 4:14 PM CDT Need for hepatitis C screening test from Last 3 Months or Most Recently Relevant to Health Maintenance Results * (ABNORMAL) LIPID PANEL W REFLEX MEASURED LDL (01/01/2025 7:56 AM CDT)Component ValueRef RangeTest MethodAnalysis TimePerformed AtPathologist Signature CHOLESTEROL, KYOOD721<200 mg/dLQuest VariableeHDL AMWIBCJPLMT81(L) > OR = 40 mg/dLQuest VariableeTRIGLYCERIDES162(H)<150 mg/dLQuest VariableeLDL-NHXXGMDKXLW28ks/dL (calc)U*tique Dale Comment: Reference range: <100 Desirable range <100 mg/dL for primary prevention; <70 mg/dL for patients with CHD or diabetic patients with > or = 2 CHD risk factors. LDL-C is now calculated using the Kofi-Priti calculation, which is a validated novel method providing better accuracy than the Friedewald equation in the estimation of LDL-C. Kofi SS et al. BRANDON. 2013;310(19): 5015-9257 (http://education.Trumaker/faq/JOK298) CHOL/HDLC RATIO4.0<5.0 (calc)U*tique Emilee HDL OVGKBZAHKMX57 <130 mg/dL (calc)U*tique DanieleComment: For patients with diabetes plus 1 major ASCVD risk factor, treating to a non-HDL-C goal of <100 mg/dL (LDL-C of <70 mg/dL) is considered a therapeutic option. Specimen (Source)Anatomical Location / LateralityCollection Method / Volume Collection TimeReceived TimeBloodBLOOD SPECIMEN / Ihtfyxk0601/01/2025 7:56 AM CDT 01/01/2025 7:57 AM CDT Narrative Authorizing ProviderResult TypeResult StatusMark Benigno Toritosoniya MDCHEMISTRYFinal ResultPerforming OrganizationAddressty/State/ZIP CodePhone Number [facility] [address] [place] [address], [facility] [address] [place] [address] * ANTI HCV [42297.2] (02/12/2014 4:14 PM CDT)ComponentValueRef RangeTest Method Analysis TimePerformed AtPathologist SignatureHEPATITIS C ANTIBODYNon-Reactive Non-Ratjcvbw01/30/2014 1:16 PM CDTALOUR LAD[facility] OF [facility] Specimen (Source)Anatomical Location / LateralityCollection Method / Volume Collection TimeReceived TimeBlood specimen (specimen)BLOOD SPECIMEN / Unknown Venipuncture / Jsxiddj1102/12/2014 4:14 PM CDT02/12/2014 4:14 PM CDT Narrative [facility] - 02/13/2014 1:16 PM CDT Antibodies to HCV not detected; does not exclude the possibility of exposure to HCV. Authorizing ProviderResult TypeResult StatusMark Benigno Amos MDSEND OUTSFinal ResultPerforming OrganizationAddressCity/State/ZIP CodePhone Number [facility] [address] [place] [address], [place] from Last 3 Months or Most Recently Relevant to Health Maintenance Insurance * Guarantor: [employer]VANTAGEAccount TypeRelation to PatientDate of BirthPhoneBilling AddressOcc Health/XlcxFhiclnge15/01/2001 ATTN A/P [address] [place] [address] Advance Directives TypeDate RecordedPatient RepresentativeExplanationHealthcare Cberygmcr75/11/2023 02/24/2023 * Full Code (Latest Code Status on File) Date ActivatedDate WhsudbjuigcQasdnswp77/25/2022 6:04 AM03/10/2022 4:46 PM QuestionAnswerCommentsCode Status Discussion:* Not Discussed Care Teams Team MemberRelationshipSpecialtyStart DateEnd Date Alen Amos [place] [address] [facility] - General10/09/05
--- OUTSIDE RECORDS SUMMARY | 2025-05-08 15:23 | XMS_ITS | Clinical Summary ---
Author Organization [facility] Address [address] [place] [address] Care Team Providers Care Health And Physical Education Professor Name Role Phone Elsewhere, Pcp Primary Care Provider Unavailabl e Source Comments Patient records contain information from all sites at [facility]. For routine questions regarding patient records, call [phone] during business hours, M-F 8:00 AM - 5:00 PM Central Time. Record requests for emergency care only can be directed to [phone] at any time.[facility] Allergies Active AllergyReactionsCriticalityNoted DateCommentsAspirinEdema (Reselect Reaction)07/22/2007CodeineEdema (Reselect Reaction)07/22/2007PenicillinsRash 07/22/2007 swelling Sulfa (Sulfonamide Antibiotics)Edema (Reselect Reaction)07/22/2007 Medications * This document contains information received from the source organization and may not represent a complete record from that organization. MedicationSigDispense QuantityRefillsLast FilledStart DateEnd DateStatus atorvastatin (LIPITOR) 20 mg tablet Take by mouth at bedtime.05/25/2022ctive blood sugar diagnostic (Contour Test Strips) strips Dispense test strips covered by the patient insurance. Test 3 times per week 05/05/2021ctive glipiZIDE (GLUCOTROL) 5 mg tablet TAKE 1 TABLET BY MOUTH TWICE DAILY 30 MINUTES BEFORE MEALS05/09/2022ctive metFORMIN XR (GLUCOPHAGE-XR) 500 mg 24 hr tablet Take 500 mg by mouth 2 (two) times a day with meals.05/27/2022ctive propranoloL (INDERAL) 40 mg tablet Take 1 tablet by mouth 2 (two) times a day.05/09/2022ctive rxrhltrqeazm-yczwwwer-JI-lutein (CENTRUM SILVER) 400-250 mcg per chewable tablet Chew 1 tablet daily.Active ibuprofen (ADVIL,MOTRIN) 200 mg capsule Take 3 capsules (600 mg total) by mouth every 6 (six) hours as needed for pain, mild pain or score 1-3 of 10 or moderate pain or score 4-6 of 10. Do not take for more than 2 weeks continuously Do not take more than 2400 mg in one day Take with food09/02/2022ctive acetaminophen (TYLENOL) 500 mg tablet Take 1 tablet (500 mg total) by mouth every 6 (six) hours as needed for pain, mild pain or score 1-3 of 10 or moderate pain or score 4-6 of 10. Do not take continuously for more than 2 weeks Do not take more than 4000 mg in one day09/02/2022ctive acalabrutinib (Calquence) 100 mg capsule 06/02/2023ctive Calquence, acalabrutinib mal, 100 mg tablet Take 100 mg by mouth daily.04/12/2023ctive allopurinoL (ZYLOPRIM) 100 mg tablet 04/12/2023ctive lisinopriL 5 mg tablet Take 5 mg by mouth.5Active Active Problems ProblemNoted DateDiagnosed DateStone Tanpie6906/26/2022 Overview (06/26/2022): Added automatically from request for surgery [id number] Stone Hvxwnhe6106/26/2022Enlarged Prostate With Lower Urinary Tract Symptoms 06/26/2022Hydronephrosis With Renal And Ureteral Calculous Bdufdllfdds01/10/2023 Chronic Kidney Disease (CKD), Stage 3b Glomerular Filtration Rate (GFR) 30 To 44 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 Barbra Friend of [facility] for this. He has blood draws and sees Dr. Friend every 3 months. Diabetes Mellitus Type 2 Without Wiwlkgdsfvjr59/15/2017 Overview (06/26/2022): Victoza is not covered. Glipizide, Pioglitazone and Metformin are tier 1. Januvia and Jardiance are tier 2. Basaglar Kwikpen, Humulin Kwikpen, Lantus, Levemir and Novolog Flexpen are covered. Canigloflozin is not covered as of 06/02/2022. Loss Hearing Sensorineural Mkqsfvneg01/31/2009Tremor Unblfvlea86/10/2009 Hypertensive Chronic Kidney Disease With Stage 1 Through Stage 4 Chronic Kidney Disease, Or Unspecified Chronic Kidney Cmtmvcr2607/22/2007Rhinitis Allergic 07/22/2007 Family History Medical HistoryRelationNameCommentsCoronary artery diseaseFatherGordon Sudha 9 mos after valve surgery from MIRheumatic aortic valve disease FatherGordon Pfahnings/p valve replacementArthritisMaternal GrandfatherHans ChristensenBreast cancer (in one breast)MotherDarlene PfahningDiabetesMother Bhavani PfahningLung cancerMotherDarlene PfahningDiabetesPaternal Grandmother Cristina PfahningCancerSisterPatti SloanBrain CancerRelationNameStatusComments FatherGordon PfahningMaternal GrandfatherHans ChristensenMotherDarlene Pfahning Paternal GrandmotherThelma PfahningSisterPatti SloanAlive Social History Tobacco UseTypesPacks/DayYears UsedDateSmoking Tobacco: NeverSmokeless Tobacco: Never Tobacco Cessation:Counseling Given: Not Answered Alcohol UseStandard Drinks/WeekCommentsYes5 (1 standard drink = 0.6 oz pure alcohol)[facility] UtilitiesAnswerDate RecordedIn the past 12 months has the [employer], gas, oil, or water [employer] threatened to shut off services in your home?No 11/06/2024Humiliation, Afraid, Rape, and Kick questionnaireAnswerDate Recorded Within the last year, have you been afraid of your partner or ex-partner?No 06/25/2022Within the last year, have you been humiliated or emotionally abused in other ways by your partner or ex-partner?No06/25/2022Within the last year, have you been kicked, hit, slapped, or otherwise physically hurt by your partner or ex-partner?No06/25/2022Within the last year, have you been raped or forced to have any kind of sexual activity by your partner or ex-partner?No06/25/2022 Hunger Vital SignAnswerDate RecordedWithin the past 12 months, you worried that your food would run out before you got the money to buymore.Never true11/06/2024 Within the past 12 months, the food you bought just didn't last and you didn't have money to get more.Never true11/06/2024PRAPARE - TransportationAnswerDate RecordedIn the past 12 months, has lack of transportation kept you from medical appointments or from getting medications?No11/06/2024In the past 12 months, has lack of transportation kept you from meetings, work, or from getting things needed for daily living?No11/06/2024Housing StabilityAnswerDate RecordedWhat is your living situation today?I have a steady place to live11/06/2024Education AnswerDate RecordedWhat is the highest level of school you have completed or the highest degree you have received?Bachelor's degree (e.g., BA, AB, BS)06/25/2022 Sex and Gender InformationValueDate RecordedSex Assigned at UkbioEncb85/09/2023 4:19 PM CSTLegal ZdsMxxo0406/18/2016 4:59 PM CSTGender CehugaswNhjr95/09/2023 4:19 PM CSTSexual IkbzgyknxmsZinzikfu11/09/2023 4:19 PM SURGICAL ELASTIC KNITTER HAND FRAME Last Filed Vital Signs Vital SignReadingTime TakenCommentsBlood Ghuiwrvj496/7404 1:38 PM CDT Qqnyi086009/03/2022 1:38 PM RPFMirtjrnhajy63.7 ??C (98.1 ??F)09/03/2022 1:38 PM CDTRespiratory Fyni021709/03/2022 1:38 PM CDTOxygen Wusecomjnf19%09/03/2022 1:38 PM CDTInhaled Oxygen Concentration--Blzaid88.8 kg (173 lb 12.8 oz)09/02/2022 8:42 AM GZKTfkipi113.3 cm (5' 11)09/02/2022 9:34 AM CDTBody Mass Index24.24 09/02/2022 8:42 AM CDT Plan of Treatment Health MaintenanceDue DateLast DoneCommentsCT Vlsylnudkxez1957Cologuard 1957 4137Cbnveubtgoo1957Colorectal Cancer Rzcjujkxo1957Diabetic Eye Exam1957Diabetic Office Visit with Foot Exam1957FIT1957 Hepatitis C Qzpmnlbfq1957Office Visit for Blood Pressure Check / Re-check 1957Urine Ewseggx16 1957HIB Vaccines (1 of 1 - Risk 1-dose series) 07/14/1958Meningococcal Vaccine (1 - Risk 2-dose series)1959MenB Vaccine (1 of 4 - Increased Risk)1967Hepatitis B Vaccines (1 of 3 - Risk 3-dose series)2017Depression Screening (Annual PHQ-2)05/17/2024Fall Risk Screen (Annual)05/17/2024Hemoglobin A1C/, 07/26/2023, 03/01/2023, Additional history existsCOVID-19 Vaccine ( season)2025 04/07/2024, 07/28/2023, 02/10/2023, Additional history existsInfluenza Vaccine (#1)/, 04/13/2023, 02/06/2022, Additional history exists Creatinine Level (Kidney Function Test)/04/2025, 07/26/2023, 03/01/2023, Additional history existsPotassium Level, 07/26/2023, 03/01/2023, Additional history existsSodium Level10/26/2025 10/26/2024, 07/26/2023, 03/01/2023, Additional history existsLipid (Cholesterol) Gxivahztl50/11/853061/03/2024, 03/01/2023, 08/24/2022, Additional history exists DTaP,Tdap,and Td Vaccines (4 - Td or Tdap)4006/02/2023, 03/30/2012, 10/28/2005Zoster SgxieqlbWfticqcbh61/17/2019, 12/27/2018, 05/03/2012Pneumococcal vaccine (50+ years)Mtutnjayq26/11/2022RSV vaccine - (32-36 weeks) or 50+ rprlwZrvyentwe02/17/2024HPV VaccinesAged OutNo longer eligible based on patient's age to complete this topicIPV VaccinesAged OutNo longer eligible based on patient's age to complete this topic Medical Devices ImplantedTypeAreaManufacturerDevice IdentifierShelf Expiration DateModel / Serial / LotMisc OtherMisc OtherEyeDescription:cataractsStnt Uret Inl 6fx26 - [id number] Implanted:Qty: 1 on 09/02/2022 [facility] StentLeft: UreterC.R.[id number] / / [id number]le IdentifierShelf Expiration DateModel / Serial / LotStnt Uret Inl 7fx24 - [id number] Implanted:Qty: 1 on 07/01/2022 by Rigoberto Ramos M.B., B.Ch. at [facility] Explanted:Qty: 1 on 07/07/2022 by Isabelle Ray P.A.-C.Ureteral StentRight: UreterC.R.[id number] / / [id number] Uret Inl 7fx24 - [id number] Implanted:Qty: 1 on 07/01/2022 by Rigoberto Rmaos M.B., B.Ch. at [facility] Explanted:Qty: 1 on 09/02/2022 by [facility] StentLeft: UreterC.R.[id number] / / [id number] Procedures Procedure NamePriorityDate/TimeAssociated DiagnosisCommentsBASIC METABOLIC PANEL, S/FUjmcncb32/12/2025 11:14 AM CDT Stone Ureteral from Last 3 Months or Most Recently Relevant to Health Maintenance Results * (ABNORMAL) Basic Metabolic Panel (10/26/2024 11:14 AM CDT)ComponentValueRef RangeTest MethodAnalysis TimePerformed AtPathologist SignaturePotassium, P4.7 3.6 - 5.2 mmol/L10/26/2024 11:35 AM CDTNPRGSodium, M944562 - 145 mmol/L 10/26/2024 11:35 AM CDTNPRGChloride, P80009 - 107 mmol/L10/26/2024 11:35 AM CDTNPRGBicarbonate, P2422 - 29 mmol/L10/26/2024 11:35 AM CDTNPRGAnion Gap, P97 - 1506 11:35 AM CDTNPRGBUN (Blood Urea Nitrogen), P218 - 24 mg/dL 10/26/2024 11:35 AM CDTNPRGCreatinine1.36(H)0.74 - 1.35 mg/dL10/26/2024 11:35 AM CDTNPRGEstimated GFR (eGFR)57(L)>=60 mL/min/BSA10/26/2024 11:35 AM CDTNPRG Comment: Estimated GFR calculated using the 2020 CKD_EPI creatinine equation. Calcium, Total, P9.38.8 - 10.2 mg/dL10/26/2024 11:35 AM CDTNPRGGlucose, P230(H) 70 - 140 mg/dL10/26/2024 11:35 AM CDTNPRGSpecimen (Source)Anatomical Location / LateralityCollection Method / VolumeCollection TimeReceived TimeBlood (Blood, Venous)10/26/2024 11:14 AM CDT10/26/2024 11:16 AM CDT Narrative Authorizing ProviderResult TypeResult StatusMichael Hicks M.D.LAB BLOOD ADD-ON Final ResultPerforming OrganizationAddressCity/State/ZIP CodePhone Number [facility] [address] [place] [address], [place] NPRG [facility] [address] [place] [address] from Last 3 Months or Most Recently Relevant to Health Maintenance Additional Health Concerns InfectionOnset DateLast IndicatedProtective Uhowdpjutpg12/13/202405/ Insurance Advance Directives For more information, please contact: [phone] * Full Code (Latest Code Status on File) Date ActivatedDate InactivatedComments07/01/2022 12:37 PM2 8:31 PM QuestionAnswerCommentsFull Code:* Discussed Care Teams Team MemberRelationshipSpecialtyStart DateEnd Date Elsewhere, Pcp PCP - GeneralInternal Medicine09/02/22
--- NOTE | 2025-05-08 15:31 | CRLHL7_ITS ---
For Patients: As a result of the Century Cures Act, medical imaging exams and procedure reports are released immediately into your electronic medical record. You may view this report before your referring provider. If you have questions, please contact your health care provider. Indication: Trauma. Technique: Right knee, 2 views. Comparison: None. Findings/Impression: Limited evaluation secondary to poor lateral positioning. Bones: Alignment is normal. No displaced fractures or bone lesions. Joint spaces: Unremarkable. Soft tissues: Unremarkable. Dictated by Julio Green MD @ 05/08/2025 4:03:41 PM (Electronically Signed)
--- NOTE | 2025-05-08 15:32 | CRLHL7_ITS ---
For Patients: As a result of the Cures Act, medical imaging exams and procedure reports are released immediately into your electronic medical record. You may view this report before your referring provider. If you have questions, please contact your health care provider. INDICATION: Chest pain. TECHNIQUE: Chest 2 views. COMPARISON: None. FINDINGS: Cardiovascular and mediastinum: Heart size and vasculature are normal in caliber and appearance. Lungs and pleural spaces: Lungs are clear. No sign of infiltrate or mass. No sign of pleural effusion. No pneumothorax. Bones and soft tissues: No significant findings. IMPRESSION: No acute or significant findings. Dictated by Julio Green MD @ 05/08/2025 4:01:53 PM (Electronically Signed)
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
[2025-05-08 16:34] LABS: Hematocrit* 46.4 % (37.0-53.0); Hemoglobin* 15.2 gm/dL (13.5-17.5); Immature Granulocytes Pct Auto 0.2 %; Mean Corpuscular HGB Conc 33 gm/dL (32-36); Mean Corpuscular Hemoglobin 30 pg (26-34); Mean Corpuscular Volume 92 fL (80-100); RDW Coefficient of Variation % 12.8 % (11.5-15.5); Red Blood Count* 5.06 m/uL (4.30-5.90); White Blood Count* 21.20 K/uL (4.50-11.00)
[2025-05-08 16:46] LABS: Chloride* 103 mmol/L (96-114)
[2025-05-08 16:47] LABS: Immature Granulocytes Abs Auto 0.00 K/uL (0.00-0.30); Lymphocytes Absolute Auto 10.90 K/uL (0.90-2.90); Potassium* 4.4 mmol/L (3.6-5.1); Sodium* 138 mmol/L (135-149)
[2025-05-08 16:48] LABS: Slide Review Reflex Yes
[2025-05-08 16:49] LABS: Blood Urea Nitrogen* 29 mg/dL (7-30); Creatinine* 1.5 mg/dL (0.5-1.5); Est. Creatinine Clearance* 50.20; Estimated Glomerular Filt Rate 50 ml/min
[2025-05-08 16:50] LABS: Anion Gap 8 mEq/L (7-15); Calcium* 9.5 mg/dL (8.4-10.6); Carbon Dioxide* 27 mmol/L (20-32); Glucose* 152 mg/dL (60-115)
[2025-05-08 17:22] LABS: Slide Review Acceptable Review (Acceptable)
== END 2025-05-08 17:31 | disposition home or self-care (01) ==
PROVIDERS: Emergency Provider Emergency Medicine Emergency Medical Services; PCP Family Medicine
DX: M54.2 Cervicalgia (principal); R07.89 Other chest pain; S81.011A Laceration without foreign body, right knee, initial encounter; V43.52XA Car driver injured in collision with other type car in traffic accident, initial encounter
CPT/HCPCS: 36415; 70450; 71046; 72125; 73562; 80048; 85025; 93005; 99284; 99285; 99291; G0390